=== PATIENT | female | born 1995 | race Caucasian/White ===

== ENCOUNTER 2020-04-10 11:51 | Emergency (ER) | payer OTHER ==
[2020-04-10 12:37] LABS: ABSOLUTE MONOCYTES (AUTO) 0.4 10^3/uL (0.1-1.4); ABSOLUTE NEUT (AUTO) 13.7 10^3/uL (1.7-8.2); BASOPHILS % (AUTO) 0.2 % (0-2); EOSINOPHILS % (AUTO) 0.2 % (0-6); HEMATOCRIT 45.4 % (36.0-47.0); HEMOGLOBIN 15.2 g/dL (12.0-15.5); LYMPHOCYTES % (AUTO) 6.5 % (13-45); MEAN CORPUSCULAR HEMOGLOBIN 31.4 pg (27.0-33.4); MEAN CORPUSCULAR HGB CONC 33.6 g/dL (32.0-36.0); MEAN CORPUSCULAR VOLUME 94 fl (80-97); MONOCYTES % (AUTO) 2.4 % (3-13); PLATELET COUNT 302 10^3/uL (150-450); RED BLOOD COUNT 4.86 10^6/uL (3.72-5.28); RED CELL DISTRIBUTION WIDTH 14.9 % (11.5-14.0); SEGMENTED NEUTROPHILS % (AUTO) 90.7 % (42-78); TOTAL CELLS COUNTED % (AUTO) 100 %; WHITE BLOOD COUNT 15.1 10^3/uL (4.0-10.5)
[2020-04-10 12:38] LABS: AMORPHOUS SEDIMENT,URINE TRACE /HPF; APPEARANCE,URINE CLOUDY; BILIRUBIN,URINE MODERATE (NEGATIVE); COLOR,URINE AMBER; GLUCOSE, URINE NEGATIVE (NEGATIVE); KETONES,URINE NEGATIVE (NEGATIVE); LEUKOCYTE ESTERASE,URINE TRACE (NEGATIVE); NITRITE,URINE NEGATIVE (NEGATIVE); PROTEIN,URINE 100 mg/dL (NEGATIVE)
[2020-04-10 12:52] LABS: ALBUMIN 4.6 g/dL (3.5-5.0); ALKALINE PHOSPHATASE 281 U/L (38-126); ANION GAP 9 (5-19); ASPARTATE AMINO TRANSFERASE 227 U/L (14-36); BILIRUBIN,DIRECT 4.8 mg/dL (0.0-0.4); BILIRUBIN,TOTAL 6.3 mg/dL (0.2-1.3); BLOOD UREA NITROGEN 7 mg/dL (7-20); CALCIUM 9.7 mg/dL (8.4-10.2); CARBON DIOXIDE 24 mmol/L (22-30); CHLORIDE 104 mmol/L (98-107); GLUCOSE 168 mg/dL (75-110); POTASSIUM 3.9 mmol/L (3.6-5.0); TOTAL PROTEIN 7.7 g/dL (6.3-8.2)
[2020-04-10] MEDS ORDERED: MORPHINE SULFATE 10 MG/ML INJ IV ONE ×4 (13:32→21:28)
[2020-04-10] MEDS ORDERED: ONDANSETRON HCL INJ/PF 4 MG/2 ML SDV IV ONE ×2 (13:32→15:36)
--- NOTE | 2020-04-10 13:33 | ER Document Report ---
ED GI/ - General Chief Complaint: Abdominal Pain Stated Complaint: ABDOMINAL PAIN Time Seen by Provider: 04/10/20 12:18 Notes: Patient is a 24-year-old female who presents emergency department with a chief complaint of upper abdominal pain. Patient states that her symptoms started 4 days ago. Patient states that it has gotten progressively worse. Patient started vomiting bilious fluid today. States that she also feels nauseous. Patient states that her stool is white in color. She is currently on her menstrual cycle at this time. Patient admits to having heavy alcohol use, but states that she "cut back and only drinks 2-3 times a week." Patient has a history of mental health problems. - Related Data Allergies/Adverse Reactions: bee venom protein (honey bee) Allergy (Verified 04/10/20 12:26) Past Medical History - General Information source: Patient - Social History Smoking Status: Current Every Day Smoker Frequency of alcohol use: Occasional Drug Abuse: None Family History: Reviewed & Not Pertinent Patient has homicidal ideation: No Psychiatric Medical History: Reports: Hx Bipolar Disorder, Hx Depression Past Surgical History: Reports: Hx Section, Hx Oral Surgery Review of Systems - Review of Systems Notes: REVIEW OF SYSTEMS: CONSTITUTIONAL : Denies recent illness. Denies recent unintentional weight loss. Denies fever, chills, or sweats. EENT: Denies eye, ear, throat, or mouth pain, discharge, or symptoms. Denies nasal or sinus congestion. CARDIOVASCULAR: Denies chest pain. RESPIRATORY: Denies shortness of breath, cough, congestion, difficulty breathing, or wheezing. GASTROINTESTINAL: See HPI. GENITOURINARY: Denies difficulty urinating, burning, blood in urine, urgency or frequency. MUSCULOSKELETAL: Denies neck and back pain. Denies joint pain or swelling. SKIN: Denies rash, itchiness, or lesions HEMATOLOGIC : Denies easy bruising or bleeding. LYMPHATIC: Denies swollen, painful, enlarged glands. NEUROLOGICAL: Denies no numbness or tingling denies weakness. Denies headache. Denies altered mental status. Denies alteration in speech. PSYCHIATRIC: Denies stress, anxiety, alteration in sleep patterns, or depression. All other systems reviewed and negative. Physical Exam - Vital signs Vitals: Temp 98.8 F 04/10/20 12:00 - Notes Notes: PHYSICAL EXAMINATION: GENERAL: Appears well, healthy, well-nourished, no acute distress. HEAD: Normocephalic, atraumatic. EYES: PERRL, conjunctiva normal, all extraocular movements intact, sclera mildly icteric ENT: Moist mucous membranes. NECK: Supple, no noticeable swelling, redness, rash. Normal range of motion. LUNGS: Equal breath sounds bilaterally and clear to auscultation. No wheezes rales or rhonchi. CARDIOVASCULAR: S1-S2, regular rate, regular rhythm. Radial pulses 2+, normal. ABDOMEN: Normoactive bowel sounds. Soft, tender right upper quadrant abdomen, moderate guarding with rebound tenderness to generalized abdomen. EXTREMITIES: Normal strength and range of motion, no pitting or edema. No cyanosis. NEUROLOGICAL: Moves all extremities upon command. Strength 5/5 in all extremities. PSYCH: Normal mood, normal affect. SKIN: Warm, dry. No rash, lesions, ulcerations noted. Normal skin turgor. Ja undice noted. Course - Re-evaluation Re-evalutation: 04/10/20 16:47 Hematology shows a leukocytosis of 15,100 with a left shift. Chemistries show a glucose of 168. Total bilirubin is 6.3 and direct bilirubin is 4.8. Lipase is 32,289. Discussed this case with Dr. Metz. We will start the patient on Rocephin. Still awaiting ultrasound. Nursing staff informed me that ultrasound had not been at bedside. Instructed nursing staff to call ultrasound to have them perform the study, as it has been 3 hours since I ordered the study. 04/10/20 17:35 Patient's right upper quadrant ultrasound shows a dilated common bile duct at 11 mm. She also has gallbladder sludge. I called [facility] for transfer, as we do not have GI coverage here at our hospital. 04/10/20 18:[address] Alvarado, the GI doctor at [facility]. The patient will be transferred over to [facility]. Will await callback from hospitalist. 04/10/20 18:[address] Ramírez, the hospitalist [facility]. Patient will be accepted there for most likely ERCP. - Vital Signs Vital signs: Temp Pulse Resp BP Pulse Ox 98.0 F 86 18 103/64 98 04/10/20 12:08 04/10/20 12:08 04/10/20 12:08 04/10/20 12:08 04/10/20 12:08 - Laboratory Result Diagrams: 04/10/20 12:23 04/10/20 12:23 Laboratory results interpreted by me: 04/10/20 04/10/20 04/10/20 12:23 12:23 12:23 WBC 15.1 H RDW 14.9 H Lymph % (Auto) 6.5 L Sterling % (Auto) 2.4 L Absolute Neuts (auto) 13.7 H Seg Neutrophils % 90.7 H Glucose 168 H Total Bilirubin 6.3 H Direct Bilirubin 4.8 H AST 227 H ALT 584 H Alkaline Phosphatase 281 H Lipase 42989.6 H Urine Protein 100 H Urine Blood LARGE H Urine Bilirubin MODERATE H Urine Urobilinogen 4.0 H Ur Leukocyte Esterase TRACE H Discharge - Discharge Clinical Impression: Alcohol abuse, Elevated LFTs Abdominal pain Qualifiers: Abdominal location: generalized Qualified Code(s): R10.84 - Generalized abdominal pain Pancreatitis Qualifiers: Chronicity: acute Pancreatitis type: other Acute pancreatitis complication: unspecified Qualified Code(s): K85.80 - Other acute pancreatitis without necrosis or infection Nausea and vomiting Qualifiers: Vomiting type: unspecified Vomiting Intractability: non-intractable Qualified Code(s): R11.2 - Nausea with vomiting, unspecified Condition: Stable Disposition: [facility] Admitting Provider: Dr. Ramírez
[2020-04-10] MEDS ORDERED: NORMAL SALINE 1000 ML 1,000 ML IV ONE ×2 (14:31→15:36)
--- NOTE | 2020-04-10 15:33 | RADIOLOGY REPORT (SQ) ---
EXAM DESCRIPTION: CT ABD/PELVIS WITH IV ONLY IMAGES COMPLETED DATE/TIME: 04/10/2020 3:22 pm REASON FOR STUDY: abdominal pain COMPARISON: None. TECHNIQUE: CT scan of the abdomen and pelvis performed using helical scanning technique with dynamic intravenous contrast injection. No oral contrast. Images reviewed with lung, soft tissue, and bone windows. Reconstructed coronal and sagittal MPR images reviewed. Delayed images for evaluation of the urinary system also acquired. All images stored on PACS. All CT scanners at this facility use dose modulation, iterative reconstruction, and/or weight based d osing when appropriate to reduce radiation dose to as low as reasonably achievable (ALARA). [facility]: Dose Right [facility]: CareDose [facility]: Dose Right [facility]: Teradose 4D [facility]: Xiaoying CONTRAST TYPE AND DOSE: contrast/concentration: Isovue 350.00 mmol/ml; Total Contrast Delivered: 87. 0 ml; Total Saline Delivered: 69.0 ml RENAL FUNCTION: GFR > 60. RADIATION DOSE: CT Rad equipment meets quality standard of care and radiation dose reduction techniq ues were employed. CTDIvol: 5.8 - 8.1 mGy. DLP: 701 mGy-cm.. LIMITATIONS: None. FINDINGS: LOWER CHEST: No significant findings. No nodules or infiltrates. LIVER: Normal size. No masses. No dilated ducts. SPLEEN: Normal size. No focal lesions. PANCREAS: Inflammation surrounding the pancreas and 2nd portion of duodenum. No mass or ductal dilat ation. GALLBLADDER: Gallstones. No inflammatory changes to suggest cholecystitis. ADRENAL GLANDS: No significant masses or asymmetry. RIGHT KIDNEY AND URETER: No solid masses. 3 mm upper pole calculus. No hydronephrosis or hydroure ter. LEFT KIDNEY AND URETER: No solid masses. No significant calcifications. No hydronephrosis or hydr oureter. AORTA AND VESSELS: No aneurysm. No dissection. Renal arteries, SMA, celiac without stenosis. RETROPERITONEUM: No retroperitoneal adenopathy, hemorrhage or masses. BOWEL AND PERITONEAL CAVITY: No masses or inflammatory changes. No free fluid or peritoneal masses. APPENDIX: Not visualized. PELVIS: No mass. No free fluid. Normal bladder. ABDOMINAL WALL: No masses. No hernias. BONES: No significant or acute findings. OTHER: No other significant finding. IMPRESSION: 1. Acute pancreatitis. 2. Cholelithiasis. TECHNICAL DOCUMENTATION: JOB ID: [id number] Quality ID # [id number]: Final reports with documentation of one or more dose reduction techniques (e.g., Au tomated exposure control, adjustment of the mA and/or kV according to patient size, use of iterative reconstruction technique) 2010 [employer]- All Rights Reserved Reading location - IP/workstation name: [email or web address]
--- NOTE | 2020-04-10 17:16 | RADIOLOGY REPORT (SQ) ---
EXAM DESCRIPTION: U/S ABDOMEN LIMITED W/O DOP IMAGES COMPLETED DATE/TIME: 04/10/2020 5:00 pm REASON FOR STUDY: RUQ pain COMPARISON: CT abdomen and pelvis earlier same date 04/10/2020. TECHNIQUE: Dynamic and static grayscale images acquired of the abdomen and recorded on PACS. Additio nal selected color Doppler and spectral images recorded. LIMITATIONS: Overlying bowel gas. FINDINGS: PANCREAS: The pancreas is partially obscured by overlying bowel gas. The visualized pancr eas appears mildly hypoechoic. LIVER: The liver measures 16.0 cm. Echotexture within normal limits. LIVER VASCULATURE: Normal directional flow of the main portal vein. GALLBLADDER: There is cholelithiasis and sludge. Normal wall thickness. There is trace amount of per icholecystic fluid. ULTRASOUND-DETECTED TEJADA'S SIGN: Negative. INTRAHEPATIC DUCTS AND COMMON DUCT: No intrahepatic biliary ductal dilation. The common bile duct is dilated to 11 mm in diameter. INFERIOR VENA CAVA: Patent. AORTA: No aneurysm visualized segments. RIGHT KIDNEY: Measures 11.3 x 4.0 x 4.9 cm. Normal echogenicity. No hydronephrosis. No calcification s. PERITONEAL AND RIGHT PLEURAL SPACE: No ascites or effusions. IMPRESSION: 1. Mildly hypoechoic appearance of the pancreas, probably corresponding to the acute king creatitis described on earlier CT abdomen and pelvis. 2. Cholelithiasis and gallbladder sludge. Trace pericholecystic fluid, nonspecific. 3. Dilated common bile duct, choledocholithiasis cannot be excluded. TECHNICAL DOCUMENTATION: JOB ID: [id number] OH-64 2010 [employer]- All Rights Reserved Reading location - IP/workstation name: [email or web address]
[2020-04-10] MEDS ORDERED: METOCLOPRAMIDE HCL INJ/PF 10 MG/2 ML SDV IV ONE (17:56)
[2020-04-10] MEDS: CEFTRIAXONE 1 GM/D5W RTU 1 GM/50 ML RTUPB IV SCH (18:19)
[2020-04-10] MEDS ORDERED: HYDROMORPHONE HCL INJ/PF 2 MG/ML AMPULE IV ONE (18:52)
[2020-04-10] MEDS ORDERED: PROMETHAZINE HCL INJ 25 MG/1 ML VIAL IV ONE ×2 (19:17→21:28)
[2020-04-10] MEDS ORDERED: RINGERS SOLUTION,LACTATED 1,000 ML IV ONE (21:14)
[2020-04-11] MEDS ORDERED: METOCLOPRAMIDE HCL INJ/PF 10 MG/2 ML SDV IV ONE (04:17)
[2020-04-11] MEDS ORDERED: MORPHINE SULFATE 10 MG/ML INJ IV ONE (04:17)
[2020-04-11 07:05] LABS: ALBUMIN 3.4 g/dL (3.5-5.0); ALKALINE PHOSPHATASE 207 U/L (38-126); ANION GAP 8 (5-19); ASPARTATE AMINO TRANSFERASE 136 U/L (14-36); BILIRUBIN,DIRECT 0.7 mg/dL (0.0-0.4); BLOOD UREA NITROGEN 6 mg/dL (7-20); CALCIUM 8.6 mg/dL (8.4-10.2); CARBON DIOXIDE 22 mmol/L (22-30); CHLORIDE 106 mmol/L (98-107); GLUCOSE 86 mg/dL (75-110); POTASSIUM 3.4 mmol/L (3.6-5.0); TOTAL PROTEIN 6.1 g/dL (6.3-8.2)
[2020-04-11] MEDS ORDERED: PROMETHAZINE HCL INJ 25 MG/1 ML VIAL IV ONE ×2 (07:22→17:41)
[2020-04-11] MEDS ORDERED: HYDROMORPHONE HCL INJ/PF 2 MG/ML AMPULE IV ONE ×3 (07:22→16:45)
[2020-04-11 07:47] LABS: BILIRUBIN,TOTAL 2.1 mg/dL (0.2-1.3)
--- NOTE | 2020-04-11 07:51 | ER Document Report ---
Doctor's Note Notes: 04/11/20 01:00 No change in patient's status. Patient remains awaiting transport and bed assignment at the [facility]. Patient has been given pain and nausea medications through the night. She is stable at this time. 04/11/20 07:00 Again no change in patient's status. Repeat labs will be obtained this morning. Nursing staff tells me there is still no bed assignment at [facility]. We will attempt to transfer to [facility] if patient does not to get a bed in the next couple of hours. Patient's pain is controlled at this time.
[2020-04-11] MEDS: PIPERACILLIN/TAZOBACTAM 3.375 GM VIAL IV SCH ×2 (08:58→13:34)
[2020-04-11] MEDS: CEFTRIAXONE 1 GM/D5W RTU 1 GM/50 ML RTUPB IV SCH (10:41)
--- NOTE | 2020-04-11 12:02 | ER Document Report ---
Doctor's Note Notes: 04/11/20 12:01 Patient requesting additional pain medication at this time. Patient updated regarding her status. 04/11/20 16:14 Parks states that she called both [facility] and states that they still do not have any available beds. 04/11/20 16:29 Call placed to [facility] transfer center for consultation for transfer. 04/11/20 17:[address] mckeon at [facility] transfer center who states that tentatively they can accept patient although they will need to review with administration whether or not they can accept her as she is an [id number] patient. 04/11/20 17:08 Consulted with hospitalist MAYANK Jackson who does agree to consult on patient due to the lengthy transfer at this time. 04/11/20 18:37 Transfer center [facility] stated that they do have an available bed and will accept patient at this time. 04/11/20 19:34 Transfer crew is here for patient, patient stable for transfer at this time.
[2020-04-11] MEDS ORDERED: ACETAMINOPHEN 325 MG TABLET PO ONE (16:24)
[2020-04-11 18:00] LABS: ALBUMIN 3.7 g/dL (3.5-5.0); ALKALINE PHOSPHATASE 202 U/L (38-126); ANION GAP 6 (5-19); ASPARTATE AMINO TRANSFERASE 121 U/L (14-36); BILIRUBIN,DIRECT 0.7 mg/dL (0.0-0.4); BILIRUBIN,TOTAL 2.1 mg/dL (0.2-1.3); BLOOD UREA NITROGEN 8 mg/dL (7-20); CALCIUM 8.8 mg/dL (8.4-10.2); CARBON DIOXIDE 26 mmol/L (22-30); CHLORIDE 103 mmol/L (98-107); GLUCOSE 78 mg/dL (75-110); POTASSIUM 3.4 mmol/L (3.6-5.0); TOTAL PROTEIN 6.4 g/dL (6.3-8.2)
[2020-04-11] MEDS ORDERED: ALBUTEROL SULFATE 0.083% NEB 2.5 MG/3 ML AMPUL NEB PRN (18:07)
[2020-04-11] MEDS ORDERED: PROMETHAZINE HCL INJ 25 MG/1 ML VIAL IV PRN (18:07)
[2020-04-11] MEDS ORDERED: NORMAL SALINE 1000 ML 1,000 ML IV PRN (18:07)
[2020-04-11] MEDS ORDERED: ONDANSETRON HCL INJ/PF 4 MG/2 ML SDV IV PRN (18:07)
[2020-04-11] MEDS ORDERED: KETOROLAC TROMETHAMINE INJ/PF 30 MG/1 ML SDV IV PRN (18:10)
[2020-04-11] MEDS ORDERED: MORPHINE SULFATE 10 MG/ML INJ IV PRN (18:11)
[2020-04-11] MEDS ORDERED: DIAZEPAM 2 MG TABLET PO PRN (18:12)
[2020-04-11] MEDS ORDERED: NICOTINE 21 MG/24 HR PATCH.TD24 TD SCH (18:30)
--- NOTE | 2020-04-11 18:32 | PDOC CONSULTATION ---
Consultation Consult Date: 04/11/20 Provider Consulted: MIKHAIL WILKS Consult reason:: Medical management History of Present Illness Patient complains of: abd pain, n/v/d History of Present Illness: CORRIE ARORA is a 24 year old female with a past medical history of bipolar disorder, depression, tobacco dependence with continuous use, and alcohol abuse/binge drinking with continuous use who presented to the [facility] with a complaint of 3 to 4 days of epigastric pain associated with nausea, vomiting, diarrhea. Evaluation in the emergency department revealed acute pancreatitis with cholelithiasis and transaminitis. She was found to have leukocytosis (WBC is 15.1), total bili 6.3/AST 227/ALT 584/alk phos 281, and lipase 30 2K. Abdominal ultrasound revealed acute pancreatitis, cholelithiasis with gallbladde r sludge, trace pericholecystic fluid, and a dilatated common bile duct. CT abdomen demonstrated acute pancreatitis with cholelithiasis. No pancreatic pseudocyst or abscess noted. The patient is currently wait-listed for a bed at [facility], [facility], and [facility] for ERCP. Hospitalist services consulted for medication management pending patient transfer. Past Medical History Cardiac Medical History: Denies: Coronary Artery Disease, Hyperlipidema, Hypertension Pulmonary Medical History: Reports: None EENT Medical History: Reports: None Neurological Medical History: Reports: None Endocrine Medical History: Reports: None Renal/ Medical History: Reports: None Malignancy Medical History: Reports: None GI Medical History: Reports: None Musculoskeltal Medical History: Reports: None Skin Medical History: Reports: None Psychiatric Medical History: Reports: Bipolar Disorder, Depression Traumatic Medical History: Reports: None Hematology: Reports: None Infectious Medical History: Reports: None Past Surgical History Past Surgical History: Reports: Section Social History Information Source: Patient Lives with: Spouse/Significant other Smoking Status: Current Every Day Smoker Cigarettes Packs Per Day: 1 Frequency of Alcohol Use: Heavy Amount of Alcoholic Beverages Per Day: binge Hx Recreational Drug Use: No Drugs: None Hx Prescription Drug Abuse: No - Advance Directive Resuscitation Status: Full Code Surrogate healthcare decision maker:: Patient significant other, Joel Singh, Family History Family History: Reviewed & Not Pertinent Parental Family History Reviewed: Yes Children Family History Reviewed: Yes Sibling(s) Family History Reviewed.: Yes Medication/Allergy Home Medications: Aripiprazole 10 mg PO DAILY 04/11/20 Venlafaxine HCl ER [Effexor Xr 37.5 mg Cap.sr] 37.5 mg PO DAILY 04/11/20 Allergies/Adverse Reactions: bee venom protein (honey bee) Allergy (Verified 04/10/20 12:26) Review of Systems Constitutional: PRESENT: headache(s). ABSENT: chills, fever(s), weight gain, weight loss Eyes: ABSENT: visual disturbances Ears: ABSENT: hearing changes Cardiovascular: ABSENT: chest pain, dyspnea on exertion, edema, orthropnea, palpitations Respiratory: ABSENT: cough, hemoptysis Gastrointestinal: PRESENT: abdominal pain, diarrhea, heartburn, nausea, vomiting. ABSENT: constipation, hematemesis, hematochezia Genitourinary: ABSENT: dysuria, hematuria Musculoskeletal: ABSENT: joint swelling Integumentary: ABSENT: rash, wounds Neurological: ABSENT: abnormal gait, abnormal speech, confusion, dizziness, focal weakness, syncope Psychiatric: ABSENT: anxiety, depression, homidical ideation, suicidal ideation Endocrine: ABSENT: cold intolerance, heat intolerance, polydipsia, polyuria Hematologic/Lymphatic: ABSENT: easy bleeding, easy bruising Physical Exam Vital Signs: Temp Pulse Resp BP Pulse Ox 99.2 F 106 H 15 109/63 98 04/11/20 15:27 04/11/20 15:27 04/11/20 17:25 04/11/20 17:25 04/11/20 17:25 Intake & Output 04/10/20 04/11/20 04/12/20 06:59 06:59 06:59 Intake Total 3050 50 Balance 3050 50 Weight 73.028 kg General appearance: PRESENT: no acute distress, cooperative, well-developed, well-nourished - overweight Head exam: PRESENT: atraumatic, normocephalic Eye exam: PRESENT: conjunctiva pink, EOMI, PERRLA. ABSENT: scleral icterus Mouth exam: PRESENT: moist, tongue midline Teeth exam: PRESENT: poor dentation Respiratory exam: PRESENT: clear to auscultation sophie, symmetrical, unlabored. ABSENT: rales, rhonchi, wheezes Cardiovascular exam: PRESENT: RRR, +S1, +S2, tachycardia - HR 90-110. ABSENT: diastolic murmur, rubs, systolic murmur Pulses: PRESENT: normal dorsalis pedis pul Vascular exam: PRESENT: normal capillary refill GI/Abdominal exam: PRESENT: normal bowel sounds, soft, tenderness. ABSENT: distended, guarding, mass, organolmegaly, rebound Rectal exam: PRESENT: deferred Extremities exam: PRESENT: full ROM. ABSENT: calf tenderness, clubbing, pedal edema Musculoskeletal exam: PRESENT: ambulatory Neurological exam: PRESENT: alert, awake, oriented to person, oriented to place, oriented to time, oriented to situation, CN II-XII grossly intact. ABSENT: motor sensory deficit Psychiatric exam: PRESENT: appropriate affect, normal mood. ABSENT: homicidal ideation, suicidal ideation Skin exam: PRESENT: dry, intact, warm. ABSENT: cyanosis, rash Results Laboratory Results: 04/11/20 17:20 04/11/20 17:20 04/11/20 04/11/20 04/11/20 06:36 17:20 17:20 WBC Cancelled RBC Cancelled Hgb Cancelled Hct Cancelled MCV Cancelled MCH Cancelled MCHC Cancelled RDW Cancelled Plt Count Cancelled Seg Neutrophils % Cancelled Sodium 136.0 L 134.9 L Potassium 3.4 L 3.4 L Chloride 106 103 Carbon Dioxide 22 26 Anion Gap 8 6 BUN 6 L 8 Creatinine 0.53 0.68 Est GFR ( Amer) > 60 > 60 Glucose 86 78 Calcium 8.6 8.8 Total Bilirubin 2.1 H D 2.1 H AST 136 H 121 H Alkaline Phosphatase 207 H 202 H Total Protein 6.1 L 6.4 Albumin 3.4 L 3.7 Lipase 3974.9 H 2726.9 H Impressions: Abdomen Ultrasound 04/10/20 13:30 IMPRESSION: 1. Mildly hypoechoic appearance of the pancreas, probably corresponding to the acute pancreatitis described on earlier CT abdomen and pelvis. 2. Cholelithiasis and gallbladder sludge. Trace pericholecystic fluid, nonspecific. 3. Dilated common bile duct, choledocholithiasis cannot be excluded. Abdomen/Pelvis CT 04/10/20 14:32 IMPRESSION: 1. Acute pancreatitis. 2. Cholelithiasis. Assessment and Plan - Diagnosis (1) Pancreatitis Qualifiers: Chronicity: acute Pancreatitis type: biliary Acute pancreatitis complication: unspecified Qualified Code(s): K85.10 - Biliary acute pancreatitis without necrosis or infection Is this a current diagnosis for this admission?: Yes Plan: Pending transfer to [facility] where ERCP is available. Blood cultures pending. We will check A1c, triglycerides Follow-up chemistry and lipase. Continue IV Zosyn. Return patient to n.p.o. status; small ice chips only. Generous IV fluids. Antiemetics and analgesics as needed. IV Protonix for PUD prophylaxis. Heparin for DVT prophylaxis. (2) Cholecystitis Is this a current diagnosis for this admission?: Yes Plan: Continue Zosyn. Remaining management as above. (3) Transaminitis Is this a current diagnosis for this admission?: Yes Plan: Secondary to pancreatitis, cholecystitis, common bile duct obstruction. LFTs are trending down. Continue generous IV fluids. Follow-up chemistry. (4) Common bile duct obstruction Is this a current diagnosis for this admission?: Yes Plan: Plan as above. (5) Alcohol abuse Is this a current diagnosis for this admission?: Yes Plan: Patient admits to heavy binge drinking; 3-4 beers on average, 3-4 nights out of the week. She is noted to be somewhat reticent when discussing her alcohol intake. She denies history of alcohol withdrawal or seizures. Magnesium level pending. Start nightly banana bag. Start scheduled Valium 2 mg p.o. every 8 hours. Valium 2 mg every 6 hours as needed agitation/withdrawal symptoms. (6) Nausea and vomiting Qualifiers: Vomiting type: unspecified Vomiting Intractability: non-intractable Qualified Code(s): R11.2 - Nausea with vomiting, unspecified Is this a current diagnosis for this admission?: Yes Plan: Secondary to #1-3. Management as above. (7) Bipolar disorder Is this a current diagnosis for this admission?: Yes Plan: Continue home medication regiment. (8) Tobacco abuse Is this a current diagnosis for this admission?: Yes Plan: Smoking cessation encouraged. Nicotine replacement therapies provided. - Time Time Spent with patient: 35 or more minutes Medications reviewed and adjusted accordingly: Yes [facility]: when bed available
[2020-04-11 18:58] LABS: HEMATOCRIT 38.2 % (36.0-47.0); MEAN CORPUSCULAR HEMOGLOBIN 31.5 pg (27.0-33.4); MEAN CORPUSCULAR HGB CONC 33.4 g/dL (32.0-36.0); MEAN CORPUSCULAR VOLUME 94 fl (80-97); RED BLOOD COUNT 4.05 10^6/uL (3.72-5.28); RED CELL DISTRIBUTION WIDTH 14.5 % (11.5-14.0); WHITE BLOOD COUNT 15.1 10^3/uL (4.0-10.5)
[2020-04-11 19:18] LABS: HEMOGLOBIN 12.8 g/dL (12.0-15.5)
[2020-04-11 19:23] VITALS: BP 111/69
[2020-04-11 19:36] LABS: ABSOLUTE LYMPHOCYTES# (MANUAL) 1.5 10^3/uL (0.5-4.7); ABSOLUTE MONOCYTES # (MANUAL) 0.6 10^3/uL (0.1-1.4); ANISOCYTOSIS SLIGHT; BASOPHILS % (MANUAL) 0 % (0-2); EOSINOPHILS % (MANUAL) 0 % (0-6); LYMPHOCYTES % (MANUAL) 10 % (13-45); MONOCYTES % (MANUAL) 4 % (3-13); PLATELET COMMENT ADEQUATE; SEGMENTED NEUTROPHILS % (MAN) 86 % (42-78); TOTAL CELLS COUNTED 100
[2020-04-11 19:38] LABS: BURR CELLS SLIGHT; OVALOCYTES SLIGHT; SCHISTOCYTES SLIGHT
[2020-04-11 19:39] LABS: PLATELET COUNT 205 10^3/uL (150-450)
[2020-04-11] MEDS ORDERED: DIAZEPAM 2 MG TABLET PO SCH (22:00)
[2020-04-11] MEDS ORDERED: PANTOPRAZOLE SODIUM 40 MG VIAL IV SCH (22:00)
[2020-04-11] MEDS ORDERED: FAMOTIDINE INJ/PF 20 MG/2 ML SDV IV SCH (22:00)
[2020-04-11] MEDS ORDERED: HEPARIN SOD (PORCINE) 5,000 UNIT/ML 1 ML VIAL SUBCUT SCH (22:00)
[2020-04-11] MEDS ORDERED: NORMAL SALINE 1000 ML 1,000 ML with POTASSIUM CHLORIDE 20 MEQ, MAGNESIUM SULFATE 8 MEQ,... IV SCH ×5 (22:00)
[2020-04-12] MEDS ORDERED: DIAZEPAM 2 MG TABLET PO SCH
[2020-04-12] MEDS ORDERED: VENLAFAXINE HCL 37.5 MG CAP.SR.24H PO SCH (10:00)
[2020-04-12] MEDS ORDERED: (PENDING PHARMACY ID) (Aripiprazole [Aripiprazole] 10 MG) PO SCH (10:00)
== END 2020-04-11 19:52 | disposition short-term general hospital (02) ==
LOC: ER 11:51
DX: K85.10 Biliary acute pancreatitis without necrosis or infection (principal); K80.51 Calculus of bile duct without cholangitis or cholecystitis with obstruction; R10.84 Generalized abdominal pain; R10.817 Generalized abdominal tenderness; R11.14 Bilious vomiting; F10.10 Alcohol abuse, uncomplicated; R79.89 Other specified abnormal findings of blood chemistry; R51 Headache; R19.7 Diarrhea, unspecified; R12 Heartburn; F17.210 Nicotine dependence, cigarettes, uncomplicated; F31.9 Bipolar disorder, unspecified; Z79.899 Other long term (current) drug therapy; Z91.030 Bee allergy status; Z20.828 Contact with and (suspected) exposure to other viral communicable diseases
CPT/HCPCS: 96376; 99285; 96361; 96375; 96365; 36415; 87040; 83690; 83735; 84478; 85025; 87635; 81025; 87070; 80053; 81001; 76705; 74177; J1885; J2765 ×2; J2270 ×2; J1170; J2550 ×2; J2405; J7030 ×2; J7120; J0696 ×2; J2543; C9803